=== PATIENT | male | born 1985 | race African-American/Black ===

== ENCOUNTER 2024-03-21 21:05 | Emergency (ER) | payer OTHER ==
[~2024-03-21] VITALS: Ht 180.3 cm; Wt 94.0 kg
[2024-03-21 21:08] VITALS: BP 142/88; PULSE 62; RESP 16; O2SAT 99
[2024-03-21] MEDS ORDERED: MORPHINE SULFATE 4 MG/ML INJ (FOR IV/IM USE) IV ONE (21:15)
[2024-03-21] MEDS ORDERED: ONDANSETRON HCL 4MG/2ML INJ IV ONE (21:15)
[2024-03-21 21:42] LABS: BASOPHILS % 0.3 % (0.0-2.0); EOSINOPHILS % 1.4 % (0.0-5.0); LYMPHOCYTES % 30.8 % (20.0-50.0); MEAN CORPUSCULAR HEMOGLOBIN 28.8 pg (28.0-32.0); MEAN CORPUSCULAR VOLUME 84.6 fL (80.0-94.0); MEAN PLATELET VOLUME 8.9 fl (7.4-10.4); MONOCYTES % 8.5 % (2.0-8.0); PLATELET 249 x1000/uL (130-400); RED BLOOD CELL COUNT 5.56 mill/uL (4.7-6.1); RED CELL DISTRIBUTION WIDTH 13.6 % (11.6-14.6); WHITE BLOOD COUNT 8.4 x1000/uL (4.5-11.0)
[2024-03-21 21:45] LABS: CHLORIDE 103 mEq/L (98-107); POTASSIUM 3.8 mEq/L (3.5-5.1); SODIUM 136 mEq/L (136-145)
[2024-03-21 21:46] LABS: CALCIUM 9.7 mg/dL (8.7-10.4); CARBON DIOXIDE 29 mEq/L (21-32)
[2024-03-21 21:51] LABS: CREATININE 0.9 mg/dL (0.6-1.3); GLUCOSE 91 mg/dL (70-105); UREA NITROGEN BLOOD 6 mg/dL (9-23)
[2024-03-21 21:52] LABS: ETHANOL BLOOD < 10 mg/dL (<10)
[2024-03-21 21:54] LABS: TROPONIN I HIGH SENSITIVITY 115 ng/L (3.0-53)
[2024-03-21 21:57] LABS: PARTIAL THROMBOPLASTIN TIME 25.7 sec (23.4-31.0); PROTHROMBIN TIME 11.5 sec (9.6-11.0)
[2024-03-21 22:30] LABS: ERYTHROCYTE SEDIMENTATION RATE 1 mm/hr (0-15)
== END 2024-03-21 21:50 | disposition left against medical advice (07) ==
LOC: ER 21:05
DX: I51.4 Myocarditis, unspecified (principal); R07.9 Chest pain, unspecified; R79.89 Other specified abnormal findings of blood chemistry
CPT/HCPCS: 36415; 71045; 80048; 80320; 83880; 84484; 85025; 85651; 93005; 99285; G0480

== ENCOUNTER 2024-04-19 20:28 | Emergency (ER) | payer OTHER ==
[~2024-04-19] VITALS: Ht 195.6 cm; Wt 93.0 kg
[2024-04-19 20:36] VITALS: TEMP 98.3; O2SAT 99
[2024-04-19 21:10] LABS: CLARITY URINE CLEAR (CLEAR); COLOR URINE YELLOW (YELLOW); SPECIFIC GRAVITY URINE 1.006 (1.005-1.030)
[2024-04-19 21:11] LABS: GLUCOSE URINE NEGATIVE (NEGATIVE); KETONES URINE NEGATIVE (NEGATIVE); NITRITE URINE NEGATIVE (NEGATIVE); OCCULT BLOOD URINE NEGATIVE (NEGATIVE); PH URINE 7.5 (4.5-8.0); PROTEIN URINE NEGATIVE (NEGATIVE); UROBILINOGEN URINE 0.2 E.U./dL (0.2-1.0)
[2024-04-19 21:12] LABS: LEUKOCYTE ESTERASE URINE 2+ (NEGATIVE)
[2024-04-19 21:23] LABS: BACTERIA URINE 2+; RBC URINE NONE SEEN /hpf (0-2); SQUAMOUS EPITHELIAL CELL URINE FEW /lpf (RARE/1+)
[2024-04-19] MEDS ORDERED: DOXY-456 MT (23:13)
[2024-04-19] MEDS ORDERED: AZITHROMYCIN 500 MG TABLET PO ONE (23:15)
[2024-04-19] MEDS: CEFTRIAXONE SODIUM 500MG VIAL IM ONE (23:46)
[2024-04-19] MEDS: LIDOCAINE HCL 1% 20ML VIAL INFIL ONE (23:47)
[2024-04-19 23:48] VITALS: BP 126/80; PULSE 80; RESP 17
== END 2024-04-19 23:59 | disposition home or self-care (01) ==
LOC: ER 20:28
DX: R30.0 Dysuria (principal); N48.89 Other specified disorders of penis; I49.9 Cardiac arrhythmia, unspecified
CPT/HCPCS: 99283; 87491; 87591; 81003; 96372; J0696; J3490